=== PATIENT | female | born 1950 | race Two or more races ===

== ENCOUNTER 2022-01-07 07:35 | Outpatient (CLI) | payer OTHER ==
[~2022-01-07 07:35] MED LIST: CIPRO500 MG; NORVASC5 MG
== END 2022-01-07 08:00 | disposition home or self-care (01) ==
LOC: MRI 07:35
PROVIDERS: ATTEND Neuromusculoskeletal Medicine & OMM
DX: I65.22 Occlusion and stenosis of left carotid artery (principal); M72.2 Plantar fascial fibromatosis; M72.1 Knuckle pads
CPT/HCPCS: 70549